=== PATIENT | male | born 1995 | race Two or more races ===

== ENCOUNTER 2021-06-07 04:46 | Day surgery (SDC) | payer OTHER ==
[2021-06-05 15:44] VITALS: BMI 28.7
[2021-06-07 13:52] VITALS: BP 120/55; PULSE 53; TEMP 97.6
== END 2021-06-07 14:08 | disposition home or self-care (01) ==
LOC: JASU-ENDO 04:46
PROVIDERS: ATTEND Internal Medicine Gastroenterology
PROC: 0DB78ZX Excision of Stomach, Pylorus, Via Natural or Artificial Opening Endoscopic, Diagnostic (ICD-10-PCS; principal; 2021-06-07 11:45)
DX: K29.50 Unspecified chronic gastritis without bleeding (principal)